=== PATIENT | female | born 1945 | race Caucasian/White ===

== ENCOUNTER 2020-09-09 17:44 | Inpatient (IN) | payer MEDICARE ==
[2020-09-09] MEDS ORDERED: Ondansetron ODT 4 MG TAB SL PRN (20:15)
[2020-09-09] MEDS ORDERED: Ondansetron PF 4 MG/2 ML Vial IVP PRN (20:15)
[2020-09-09] MEDS ORDERED: Acetaminophen 325 MG TAB PO PRN (20:15)
[2020-09-09] MEDS ORDERED: Meclizine HCl 25 MG TAB PO SCH (21:00)
[2020-09-09 21:24] VITALS: BMI 26.4
[2020-09-09] MEDS ORDERED: Ondansetron ODT 4 MG TAB PO PRN (22:09)
[2020-09-09] MEDS ORDERED: Senokot S 8.6-50 MG TAB PO PRN (22:09)
[2020-09-09] MEDS ORDERED: Calcium Carbonate 500 MG ChewTAB PO PRN (22:09)
[2020-09-09] MEDS ORDERED: Dextrose 5% in Water 1,000 ML IV PRN (22:13)
[2020-09-09] MEDS ORDERED: HumaLOG 300 UNITS/3 ML VIAL SC PRN (22:13)
[2020-09-09] MEDS ORDERED: Dextrose 50% Abboject 50 ML SYRINGE SLOW IVP PRN (22:13)
[2020-09-09] MEDS: Meclizine HCl 25 MG TAB PO SCH (23:31)
[2020-09-10] MEDS: Atorvastatin Calcium 40 MG TAB PO SCH ×2 (00:05→21:13)
[2020-09-10] MEDS: cefTRIAXone\\ROCEPHIN 1 GM in Sodium Chloride 0.9% 100 ML IVPB SCH ×2 (01:07→22:40)
[2020-09-10 04:34] LABS: SARS-CoV-2 PCR by NAA Not Detected (NotDetected)
[2020-09-10 05:14] LABS: #Basophils 0.1 thou/uL (0.0-0.2); #Eosinphils 0.3 thou/uL (0.0-0.7); #Lymphocytes 1.5 thou/uL (1.20-3.40); #Monocytes 0.5 thou/uL (0.11-0.59); #Neutrophils 2.9 thou/uL (1.40-6.50); %Basophils 1.2 % (0.0-1.0); %Lymphocytes 28.5 % (21.0-51.0); %Monocytes 10.3 % (0.0-10.0); %Neutrophils 54.1 % (42.0-75.0); Hemoglobin 10.2 g/dL (12.0-16.0); Mean Corpuscular Hemoglobin 26.3 pg (27.0-31.0); Mean Corpuscular Volume 82.4 fL (78.0-98.0); Mean Platelet Volume 6.9 fL (7.4-10.4); Platelet Count 282 thou/uL (130-400); RBC Distribution Width 13.4 % (11.5-14.5); Red Blood Cell (RBC) Count 3.86 mill/uL (4.20-5.40); White Blood Cell (WBC) Count 5.3 thou/uL (4.8-10.8)
[2020-09-10 05:35] LABS: Anion Gap 16 mmol/L (10-20); BUN (Urea Nitrogen) 17 mg/dL (9.8-20.1); Calc. Creatinine Clearance 64 mL/min (70-130); Carbon Dioxide 24 mmol/L (23-31); Cardiac Risk 3.8 (Less than 4.5); Chloride 100 mmol/L (98-107); Cholesterol 225 mg/dl (< 200 Desired); Glucose 138 mg/dL (83-110); HDL Cholesterol 59 mg/dL (>60 Neg Risk); LDL Cholesterol, Calculated 135 mg/dL; Magnesium 1.5 mg/dL (1.6-2.6); Potassium 3.9 mmol/L (3.5-5.1); Sodium 136 mmol/L (136-145); Triglycerides 155 mg/dL (Less than 150)
[2020-09-10 05:59] LABS: Thyroid Stimulating Hormone 0.7412 uIU/mL (0.35-4.94)
[2020-09-10] MEDS: Meclizine HCl 25 MG TAB PO SCH ×3 (07:00→21:16)
[2020-09-10] MEDS: Levothyroxine Sodium 112 MCG TAB PO SCH (07:00)
[2020-09-10] MEDS: rOPINIRole HCl 2 MG TAB PO SCH ×2 (08:42→21:16)
[2020-09-10] MEDS: Lisinopril 20 MG TAB PO SCH (08:43)
[2020-09-10] MEDS: FLUoxetine HCl 20 MG CAP PO SCH ×2 (08:43→21:14)
[2020-09-10] MEDS: hydrALAZINE 25 MG TAB PO SCH ×3 (08:43→21:15)
[2020-09-10] MEDS ORDERED: Aspirin 81 mg Enteric Coated Tablet PO SCH (09:00)
[2020-09-10] MEDS ORDERED: diphenhydrAMINE 50 MG/ML VIAL IVP SCH (09:00)
[2020-09-10] MEDS ORDERED: Metoclopramide HCl 10 MG/2 ML VIAL IVP SCH (09:00)
[2020-09-10] MEDS ORDERED: Aspirin 325 mg Enteric Coated Tablet PO SCH (09:00)
[2020-09-10] MEDS: Fluticasone Propionate Nasal Spray 16 gm Bottle NASAL SCH ×2 (11:29→21:15)
[2020-09-10] MEDS: hydrALAZINE 20 MG/ML VIAL SLOW IVP PRN (11:30)
[2020-09-10] MEDS: HumaLOG 300 UNITS/3 ML VIAL SC PRN (12:15)
[2020-09-10] MEDS: traMADol HCl 50 MG TAB PO PRN ×2 (13:15→21:22)
[2020-09-10] MEDS ORDERED: Magnesium 2 GM/50 ML 2 GM in Premix Bag 1 BAG IVPB SCH (14:45)
[2020-09-10] MEDS ORDERED: Ketorolac Tromethamine 30 MG/ML VIAL IVP SCH (14:45)
[2020-09-10] MEDS: Aggrenox 200-25mg CAP PO SCH (21:13)
[2020-09-10] MEDS: Magnesium Oxide 400 MG TAB PO SCH (21:15)
[2020-09-11] MEDS: traMADol HCl 50 MG TAB PO PRN ×2 (03:28→09:54)
[2020-09-11] MEDS: Ondansetron PF 4 MG/2 ML Vial IVP PRN (03:32)
[2020-09-11] MEDS: Meclizine HCl 25 MG TAB PO SCH ×3 (05:19→20:13)
[2020-09-11] MEDS: Levothyroxine Sodium 112 MCG TAB PO SCH (05:19)
[2020-09-11] MEDS: Acetaminophen 325 MG TAB PO PRN ×3 (05:19→23:17)
[2020-09-11] MEDS: HumaLOG 300 UNITS/3 ML VIAL SC PRN ×2 (05:45→11:30)
[2020-09-11] MEDS: rOPINIRole HCl 2 MG TAB PO SCH ×2 (09:52→20:20)
[2020-09-11] MEDS: Aggrenox 200-25mg CAP PO SCH ×2 (09:53→20:12)
[2020-09-11] MEDS: Lisinopril 20 MG TAB PO SCH (09:53)
[2020-09-11] MEDS: hydrALAZINE 25 MG TAB PO SCH ×3 (09:53→20:13)
[2020-09-11] MEDS: Magnesium Oxide 400 MG TAB PO SCH ×2 (09:54→20:13)
[2020-09-11] MEDS: FLUoxetine HCl 20 MG CAP PO SCH ×2 (09:54→20:12)
[2020-09-11] MEDS: Fluticasone Propionate Nasal Spray 16 gm Bottle NASAL SCH ×2 (09:56→20:11)
[2020-09-11] MEDS: hydrALAZINE 20 MG/ML VIAL SLOW IVP PRN (17:20)
[2020-09-11] MEDS: Atorvastatin Calcium 40 MG TAB PO SCH (20:14)
[2020-09-11] MEDS: cefTRIAXone\\ROCEPHIN 1 GM in Sodium Chloride 0.9% 100 ML IVPB SCH (23:17)
[2020-09-12] MEDS: Meclizine HCl 25 MG TAB PO SCH ×2 (04:50→14:44)
[2020-09-12] MEDS: Acetaminophen 325 MG TAB PO PRN ×2 (04:50→08:47)
[2020-09-12] MEDS: Levothyroxine Sodium 112 MCG TAB PO SCH (04:51)
[2020-09-12] MEDS: rOPINIRole HCl 2 MG TAB PO SCH (08:46)
[2020-09-12] MEDS: Aggrenox 200-25mg CAP PO SCH (08:46)
[2020-09-12] MEDS: Lisinopril 20 MG TAB PO SCH (08:47)
[2020-09-12] MEDS: Magnesium Oxide 400 MG TAB PO SCH (08:47)
[2020-09-12] MEDS: Ondansetron PF 4 MG/2 ML Vial IVP PRN (08:47)
[2020-09-12] MEDS: hydrALAZINE 25 MG TAB PO SCH ×2 (08:48→14:44)
[2020-09-12] MEDS: FLUoxetine HCl 20 MG CAP PO SCH (08:48)
[2020-09-12] MEDS: Fluticasone Propionate Nasal Spray 16 gm Bottle NASAL SCH (10:29)
[2020-09-12 11:46] VITALS: TEMP 99.2
[2020-09-12] MEDS: HumaLOG 300 UNITS/3 ML VIAL SC PRN (12:14)
[2020-09-12 12:20] VITALS: BP 160/65
== END 2020-09-12 14:44 | disposition home health service (06) | DRG 65 ==
LOC: 2SE 19:55 → SURG A 19:56 → 2SE 20:00 → OBSVTOIN 09-10 14:34
PROVIDERS: ADMIT Internal Medicine; ATTEND Internal Medicine
DX: I63.532 Cerebral infarction due to unspecified occlusion or stenosis of left posterior cerebral artery (principal); N30.00 Acute cystitis without hematuria; Z16.23 Resistance to quinolones and fluoroquinolones; Z16.11 Resistance to penicillins; R00.0 Tachycardia, unspecified; E11.9 Type 2 diabetes mellitus without complications; I10 Essential (primary) hypertension; G25.81 Restless legs syndrome; F32.9 Major depressive disorder, single episode, unspecified; R29.706 NIHSS score 6; I25.10 Atherosclerotic heart disease of native coronary artery without angina pectoris; J84.10 Pulmonary fibrosis, unspecified; M06.9 Rheumatoid arthritis, unspecified; E03.9 Hypothyroidism, unspecified; K21.9 Gastro-esophageal reflux disease without esophagitis; B96.20 Unspecified Escherichia coli [E. coli] as the cause of diseases classified elsewhere; Z88.5 Allergy status to narcotic agent; Z88.0 Allergy status to penicillin; Z88.8 Allergy status to other drugs, medicaments and biological substances; Z99.81 Dependence on supplemental oxygen; Z79.890 Hormone replacement therapy
CPT/HCPCS: 36415; 36416; 70551; 80048; 80061; 82607; 82746; 83735; 84443; 85025; 87635; 93306; 96374; 96375; G0378; J0360; J0696; J1200; J1815; J1885; J2405; J2765; J3475; J3490; Q0162; U0003; U0005

== ENCOUNTER 2021-11-04 09:44 | Outpatient (CLI) | payer MEDICARE | END 2021-11-04 09:45 | disposition home or self-care (01) | LOC: RAD 09:44 | PROVIDERS: ATTEND Internal Medicine | DX: R13.10 Dysphagia, unspecified (principal); K21.9 Gastro-esophageal reflux disease without esophagitis; R19.7 Diarrhea, unspecified; D64.9 Anemia, unspecified; Z86.010 Personal history of colon polyps | CPT/HCPCS: 74230 ==

== ENCOUNTER 2025-04-29 08:30 | Emergency (ER) | payer MEDICARE ==
[2025-04-29] MEDS ORDERED: Iopamidol-370 76% 500 ML MDV (1 ML CHARGE) ONE (09:54)
[2025-04-29 11:47] LABS: #Basophils 0.03 10x3/uL (0.0-0.2); #Eosinophils 0.10 10x3/uL (0.0-0.7); #Monocytes 0.57 10x3/uL (0.11-0.59); #Neutrophils 4.91 10x3/uL (1.40-6.50); %Basophils 0.4 % (0.0-1.0); %Eosinophils 1.4 % (0.0-10.0); %Lymphocytes 18.5 % (21.0-51.0); %Monocytes 8.2 % (0.0-10.0); %Neutrophils 71.2 % (42.0-75.0); Hematocrit 35.6 % (36.0-47.0); Hemoglobin 11.3 g/dL (12.0-16.0); Mean Corpuscular Hemoglobin 29.2 pg (27.0-31.0); Mean Corpuscular Volume 92.0 fL (78.0-98.0); Platelet Count 223 10x3/uL (130-400); Red Blood Cell (RBC) Count 3.87 mill/uL (4.20-5.40); White Blood Cell (WBC) Count 6.91 10x3/uL (4.8-10.8)
[2025-04-29 11:56] LABS: CAUTI Indications for Culture Acute Hematuria; Glucose, Urine (Dipstick) Normal (Negative); Leukocyte 500 Leu/uL (Negative); Protein, Urine (Dipstick) Negative (Neg-Trace); RBC/HPF 0-3 HPF (0-3); Specific Gravity, Urine 1.009 (1.002-1.036); WBC/HPF 21-50 HPF (0-3)
[2025-04-29 12:00] LABS: ALT (SGPT) 8 U/L (Less than 34); AST (SGOT) 17 U/L (11-34); Albumin 3.6 g/dL (3.1-4.5); Alkaline Phosphatase 111 U/L (40-110); Anion Gap 16 mmol/L (10-20); BUN (Urea Nitrogen) 24 mg/dL (9.8-20.1); Bilirubin, Total 0.4 mg/dL (0.3-1.2); Calc. Creatinine Clearance 0 mL/min (70-130); Calcium 9.4 mg/dL (7.8-10.44); Carbon Dioxide 25 mmol/L (23-31); Chloride 101 mmol/L (98-107); Globulin 3.6 g/dL (2.4-3.5); Glucose 118 mg/dL (83-110); Potassium 3.9 mmol/L (3.5-5.1); Sodium 138 mmol/L (136-145)
[2025-04-29 12:03] LABS: Bacteria/HPF 1+ HPF (None Seen)
[2025-04-29 12:04] LABS: Urine Culture Reflex Yes Yes
[2025-04-29] MEDS ORDERED: dilTIAZem 25 MG/5 ML VIAL ONE (12:23)
[2025-04-29] MEDS ORDERED: Ketorolac Tromethamine 30 MG (1 mL) VIAL ONE (13:14)
[2025-04-29] MEDS ORDERED: Ondansetron PF 4 MG/2 ML Vial ONE (13:14)
[2025-04-29 14:22] LABS: Actual Bicarbonate (HCO3v) 22.7 mEq/L (22-28); Base Excess -3.6 mEq/L (-2.0 to +3.0); Calcium, Ionized (venous) 1.13 mmol/L (1.16-1.32); Chloride (VBG) 101 mmol/L (98-106); Hematocrit-VBG 38 % (36.0-47.0); Hemoglobin (Hb) 13.0 g/dL (11.7-16.1); Potassium (VBG) 3.75 mmol/L (3.70-5.30); Sodium 137 mmol/L (133-146)
== END 2025-04-29 18:20 | disposition short-term general hospital (02) ==
LOC: ERS 08:30
DX: A41.9 Sepsis, unspecified organism (principal); H04.302 Unspecified dacryocystitis of left lacrimal passage; I48.20 Chronic atrial fibrillation, unspecified; I25.10 Atherosclerotic heart disease of native coronary artery without angina pectoris; E11.9 Type 2 diabetes mellitus without complications; I10 Essential (primary) hypertension
CPT/HCPCS: 70481; 80053; 81001; 82805; 83605; 84484; 85025; 87040; 87077; 87086; 87186; 93005; 94760; J0295; J1885; J2405; Q9967; 36415; 96361; 96365; 96375; 96376